=== PATIENT | female | born 1970 | race Caucasian/White ===

== ENCOUNTER 2017-01-29 18:22 | Emergency (ER) | payer SELFPAY ==
--- NOTE | 2017-01-29 19:42 | ED ---
Head Injury - HPI Summary HPI Summary: 46F present with head injury this morning. She fell on the ice. She states that since then she feels like she is in a fog. She states that her vision feels blurry but she denies any diplopia. She admits to a moderate headache. She took a dose of ibuprofen. She also admits to mild back pain. She denies any LOC. She denies being on blood thinners. She hit the left side of her head. She admits to nausea but denies any vomiting. - History Of Current Complaint Chief Complaint: EDHeadInjury Stated Complaint: FALL/HEAD INJURY Time Seen by Provider: 01/29/17 19:19 Pain Intensity: 4 - Allergies/Home Medications Allergies/Adverse Reactions: Allergies Allergy/AdvReac Type Severity Reaction Status Date / Time Codeine Allergy See Comment Verified 01/29/17 18:52 PMH/Surg Hx/FS Hx/Imm Hx Endocrine/Hematology History: Denies: Hx Anticoagulant Therapy Cardiovascular History: Denies: Hx Hypertension Infectious Disease History: No Infectious Disease History: Denies: Traveled Outside the [place] in Last 30 Days - Family History Known Family History: Negative: Cardiac Disease - Social History Alcohol Use: None Substance Use Type: Reports: None Smoking Status (MU): Never Smoked Tobacco Review of Systems Negative: Fever Positive: Photophobia, Blurred Vision. Negative: Diplopia Negative: Chest Pain Negative: Shortness Of Breath Positive: Headache All Other Systems Reviewed And Are Negative: Yes Physical Exam Triage Information Reviewed: Yes Vital Signs On Initial Exam: Initial Vitals Temp Pulse Resp BP Pulse Ox 97.7 F 76 18 134/79 100 01/29/17 18:52 01/29/17 18:52 01/29/17 18:52 01/29/17 18:52 01/29/17 18:52 Vital Signs Reviewed: Yes Appearance: Positive: Well-Appearing Skin: Positive: Warm, Dry Head/Face: Positive: Normal Head/Face Inspection, Other - no step off, raccoon eyes, mckinley sign Eyes: Positive: Normal, EOMI, ESME, Conjunctiva Clear ENT: Positive: Normal ENT inspection, Pharynx normal, TMs normal Respiratory/Lung Sounds: Positive: Clear to Auscultation, Breath Sounds Present Cardiovascular: Positive: Normal, RRR Musculoskeletal: Positive: Other - no midline tenderness Neurological: Positive: Sensory/Motor Intact, Alert, Oriented to Person Place, Time, CN Intact II-III - [place] Coma Scale Best Eye Response: 4 - Spontaneous Best Motor Response: 6 - Obeys Commands Best Verbal Response: 5 - Oriented Diagnostics - Vital Signs Vital Signs Temp Pulse Resp BP Pulse Ox 01/29/17 18:52 97.7 F 76 18 134/79 100 - Laboratory Lab Statement: Any lab studies that have been ordered have been reviewed, and results considered in the medical decision making process. - CT brain CT Interpretation: No Acute Changes - IMPRESSION: NO EVIDENCE FOR ACUTE INTRACRANIAL ABNORMALITY. CT Interpretation Completed By: Radiologist Head Injury Course/Dx Course Of Treatment: 46F presents with head injury this morning when slipped on ice. no LOC. is not on blood thinners. no vomiting but admits to nausea. admits to blurry vision and difficulty concentrating. normal neuro exam. CT normal. gave zofran and discussed symptoms are normal for head injury. told if develops vomiting or severe headache to return. told to take zofran and tyenlol for headache. told to follow up with primary. patient understands and agrees with plan - Diagnoses Differential Diagnosis/HQI/PQRI: Concussion Without LOC, Contusion, Intracranial Bleed Provider Diagnoses: Head injury Discharge - Discharge Plan Condition: Good Disposition: HOME Prescriptions: Ondansetron ODT TAB* [Zofran 4 MG Odt TAB*] 4 mg PO Q6H PRN #10 tab.odt PRN Reason: Nausea Patient Education Materials: Head Injury (ED) Referrals: Eulgoio Luis MD [Primary Care Provider] - Additional Instructions: Take Tylenol or ibuprofen for headache every 6 hours as needed Is normal to feel sleeper than usual, have difficulty concentrating, and to have a change in appetite Follow up with primary within 5 days if no improvement Return to ED if develop vomiting, severe headache, change in behavior, or any new or worsening symptoms
--- NOTE | 2017-01-29 19:56 | RAD ---
INDICATION: Head injury. COMPARISON: There are no prior studies available for comparison. TECHNIQUE: Contiguous axial sections of the brain were obtained from the skull base to the vertex without contrast. FINDINGS: The ventricles, cisterns and sulci are within normal limits. No significant focal abnormality or mass effect is seen. There is no evidence for hemorrhage. No significant focal osseous abnormality is seen. The visualized portion of the paranasal sinuses and mastoid air cells appear clear. IMPRESSION: NO EVIDENCE FOR ACUTE INTRACRANIAL ABNORMALITY.
[2017-01-29] MEDS ORDERED: Ondansetron ODT TAB* 4 MG PO ONE ×2 (19:57→20:11)
[2017-01-29] MEDS ORDERED: Acetaminophen TAB* 325 MG PO ONE (20:05)
[2017-01-29 22:40] VITALS: BP 115/78
== END 2017-01-29 21:02 | disposition home or self-care (01) ==
LOC: ED 18:22
DX: S09.90XA Unspecified injury of head, initial encounter (principal); H53.8 Other visual disturbances; W00.9XXA Unspecified fall due to ice and snow, initial encounter; Y93.9 Activity, unspecified; Y92.9 Unspecified place or not applicable; Y99.9 Unspecified external cause status; R51 Headache
CPT/HCPCS: 70450; 99282; A9270-GY

== ENCOUNTER 2017-06-10 16:46 | Emergency (ER) | payer OTHER ==
[2017-06-10 18:53] LABS: Hematocrit 40 % (35-47); Hemoglobin 13.3 g/dl (12.0-16.0); Mean Corpuscular HGB Conc 33 g/dl (31-36); Mean Corpuscular Hemoglobin 30 pg (27-31); Mean Corpuscular Volume 90 fL (80-97); Mean Platelet Volume 9 um3 (7.4-10.4); Red Blood Count 4.47 10^6/ul (4.0-5.4); Red Cell Distribution Width 15 % (10.5-15); White Blood Count 8.6 10^3/ul (3.5-10.8)
[2017-06-10] MEDS ORDERED: Ketorolac INJ* 30 MG/ML 1 ML VIAL IV PUSH ONE (18:59)
[2017-06-10] MEDS ORDERED: Ondansetron INJ* 2 MG/ML VIAL IV ONE (18:59)
[2017-06-10 19:08] LABS: ALT 9 U/L (7-52); AST 12 U/L (13-39); Albumin 3.8 g/dL (3.2-5.2); Alkaline Phosphatase 66 U/L (34-104); Anion Gap 5 mmol/L (2-11); BUN/Creatinine Ratio 11.8 (8-20); Blood Urea Nitrogen 10 mg/dL (6-24); CO2 Carbon Dioxide 25 mmol/L (22-32); Calcium 8.7 mg/dL (8.6-10.3); Chloride 107 mmol/L (101-111); EGFR African American 93.4 (>60); EGFR Non-African American 72.7 (>60); Globulin 2.8 g/dL (2-4); Glucose 76 mg/dL (70-100); Lipase 23 U/L (11.0-82.0); Potassium 3.6 mmol/L (3.5-5.0); Sodium 137 mmol/L (133-145); Total Protein 6.6 g/dL (6.4-8.9)
[2017-06-10] MEDS ORDERED: NS 0.9% 1000 ML* 2,000 ML IV ONE (19:24)
[2017-06-10] MEDS ORDERED: Morphine INJ* 4 MG/ML 1 ML SYRINGE IV ONE (19:26)
--- NOTE | 2017-06-10 19:51 | ED ---
GI/ HPI - HPI Summary HPI Summary: 46F presents with vaginal bleeding and LLQ for today. She has never had this before. She states she is soaking a pad an hour. She does not have a history of excessive vaginal bleeding. She admits to nausea from the pain. She denies any diarrhea, constipation, or vomiting. She denies any fever. She denies any flank pain, dysuria, hematuria, vaginal discharge, history of STDS. She denies any previous abdominal surgeries. She denies any history of ovarian cyst. - History of Current Complaint Chief Complaint: EDVaginalBleeding Time Seen by Provider: 06/10/17 18:35 Stated Complaint: ABD PAIN/BLEEDING Pain Intensity: 7 - Allergy/Home Medications Allergies/Adverse Reactions: Allergies Allergy/AdvReac Type Severity Reaction Status Date / Time Codeine Allergy See Comment Verified 06/10/17 17:03 PMH/Surg Hx/FS Hx/Imm Hx Endocrine/Hematology History: Denies: Hx Anticoagulant Therapy Cardiovascular History: Denies: Hx Hypertension Infectious Disease History: No Infectious Disease History: Denies: Traveled Outside the [place] in Last 30 Days - Family History Known Family History: Negative: Cardiac Disease - Social History Alcohol Use: Daily Alcohol Amount: twisted tea 2 bottles Substance Use Type: Reports: None Smoking Status (MU): Never Smoked Tobacco Review of Systems Negative: Fever Negative: Chest Pain Negative: Shortness Of Breath Positive: Abdominal Pain, Vomiting, Nausea. Negative: Diarrhea Positive: other - vaginal bleeding All Other Systems Reviewed And Are Negative: Yes Physical Exam Triage Information Reviewed: Yes Vital Signs On Initial Exam: Initial Vitals Temp Pulse Resp BP Pulse Ox 99.2 F 87 16 118/80 99 06/10/17 16:59 06/10/17 16:59 06/10/17 16:59 06/10/17 16:59 06/10/17 16:59 Vital Signs Reviewed: Yes Appearance: Positive: Pain Distress Skin: Positive: Warm, Dry Head/Face: Positive: Normal Head/Face Inspection Eyes: Positive: Normal, Conjunctiva Clear ENT: Positive: Normal ENT inspection, Pharynx normal, TMs normal Respiratory/Lung Sounds: Positive: Clear to Auscultation, Breath Sounds Present Cardiovascular: Positive: Normal, RRR Abdomen Description: Positive: Soft, Other: - moderate tenderness in LLQ, no rebound Bowel Sounds: Positive: Present - Aletha Coma Scale Coma Scale Total: 15 Diagnostics - Vital Signs Vital Signs Temp Pulse Resp BP Pulse Ox 06/10/17 19:00 78 99 06/10/17 18:30 76 106/64 96 06/10/17 18:00 73 13 112/72 97 06/10/17 17:44 81 98 06/10/17 17:43 94/48 06/10/17 16:59 99.2 F 87 16 118/80 99 - Laboratory Lab Results: Lab Results 06/10/17 06/10/17 06/10/17 Range/Units 18:45 18:45 18:45 WBC 8.6 (3.5-10.8) 10^3/ul RBC 4.47 (4.0-5.4) 10^6/ul Hgb 13.3 (12.0-16.0) g/dl Hct 40 (35-47) % MCV 90 (80-97) fL MCH 30 (27-31) pg MCHC 33 (31-36) g/dl RDW 15 (10.5-15) % Plt Count 273 (150-450) 10^3/ul MPV 9 (7.4-10.4) um3 Neut % (Auto) 66.6 (38-83) % Lymph % (Auto) 24.7 L (25-47) % Mobile % (Auto) 6.7 (1-9) % Eos % (Auto) 1.0 (0-6) % Baso % (Auto) 1.0 (0-2) % Absolute Neuts (auto) 5.7 (1.5-7.7) 10^3/ul Absolute Lymphs (auto) 2.1 (1.0-4.8) 10^3/ul Absolute Monos (auto) 0.6 (0-0.8) 10^3/ul Absolute Eos (auto) 0.1 (0-0.6) 10^3/ul Absolute Basos (auto) 0.1 (0-0.2) 10^3/ul Absolute Nucleated RBC 0.01 10^3/ul Nucleated RBC % 0.1 INR (Anticoag Therapy) 0.93 (0.89-1.11) APTT 27.5 (26.0-36.3) seconds Sodium 137 (133-145) mmol/L Potassium 3.6 (3.5-5.0) mmol/L Chloride 107 (101-111) mmol/L Carbon Dioxide 25 (22-32) mmol/L Anion Gap 5 (2-11) mmol/L BUN 10 (6-24) mg/dL Creatinine 0.85 (0.51-0.95) mg/dL Est GFR ( Amer) 93.4 (>60) Est GFR (Non-Af Amer) 72.7 (>60) BUN/Creatinine Ratio 11.8 (8-20) Glucose 76 (70-100) mg/dL Calcium 8.7 (8.6-10.3) mg/dL Total Bilirubin 0.60 (0.2-1.0) mg/dL AST 12 L (13-39) U/L ALT 9 (7-52) U/L Alkaline Phosphatase 66 (34-104) U/L C-React Prot High Sens 1.76 mg/L Total Protein 6.6 (6.4-8.9) g/dL Albumin 3.8 (3.2-5.2) g/dL Globulin 2.8 (2-4) g/dL Albumin/Globulin Ratio 1.4 (1-3) Lipase 23 (11.0-82.0) U/L Beta HCG, Quant < 0.60 mIU/mL Result Diagrams: 06/10/17 18:45 06/10/17 18:45 Lab Statement: Any lab studies that have been ordered have been reviewed, and results considered in the medical decision making process. - CT abd CT Interpretation: No Acute Changes - no neprolithasis, no bowel obstruction, colitits, free fluid CT Interpretation Completed By: Radiologist MOHAMUD Course/Dx - Course Course Of Treatment: 46F presents with vaginal bleeding and LLQ for today. She has never had this before. She states she is soaking a pad an hour. She does not have a history of excessive vaginal bleeding. She admits to nausea from the pain. She denies any diarrhea, constipation, or vomiting. She denies any fever. She denies any flank pain, dysuria, hematuria, vaginal discharge, history of STDS. She denies any previous abdominal surgeries. on exam tender in LLQ. no rebound. u/s no show left ovary. got CT because still in lot of pain no stone or large cyst on CT. could be dysmenorrhea? patient decline vaginal exam. patient understands and agrees with plan. - Diagnoses Differential Diagnoses - Female: Diverticulitis, , Urinary Tract Infection Provider Diagnoses: Abdominal pain, Vaginal bleeding Discharge - Discharge Plan Condition: Good Disposition: HOME Prescriptions: Ondansetron ODT TAB* [Zofran 4 MG Odt TAB*] 4 mg PO Q6H PRN #12 tab.odt PRN Reason: Nausea Patient Education Materials: Dysmenorrhea (ED) Referrals: Eulogio Luis MD [Primary Care Provider] - Additional Instructions: Drink small amounts of fluid as tolerated When able to eat follow BRAT diet: Bananas, rice, applesauce, toast Take ibuprofen or Tylenol for pain as needed every 6 hours Follow up with primary within 5 days Return to ED if develop any new or worsening symptoms
--- NOTE | 2017-06-10 20:56 | RAD ---
Indication: LEFT lower quadrant pain. Vaginal bleeding. Comparison: No relevant prior exams available on the [facility] for comparison. Technique: Transvaginal pelvic ultrasound. Report: Unremarkable 8.1 x 3.5 x 4.9 cm anteverted retroflexed uterus. 8.4 mm endometrium. Nabothian cysts at the cervix. Trace free fluid at the cul-de-sac. 3.1 x 1.2 x 1.9 cm RIGHT ovary with documented vascular flow is remarkable for small follicles only. The LEFT ovary could not be visualized. No extraovarian adnexal region lesions evident. IMPRESSION: 1. Unremarkable uterus and RIGHT ovary. 2. The LEFT ovary could not be visualized with assessment limited due to bowel gas and poor tolerance for ultrasound exam of the LEFT lower quadrant attributable to previous back injury according to the technologist. 3. No visualized adnexal region lesions evident. 4. Negative for significant free pelvic fluid.
[2017-06-10] MEDS ORDERED: oxyCODONE ORAL.SOLN* 5 MG/5 ML UDC PO ONE (21:37)
[2017-06-10] MEDS ORDERED: Morphine INJ* 2 MG/ML 1 ML SYRINGE IV ONE (22:39)
[2017-06-10 22:49] LABS: Urine Bacteria Absent (Absent); Urine Bilirubin Negative (Negative); Urine Glucose Negative (Negative); Urine Nitrite Negative (Negative)
[2017-06-10] MEDS ORDERED: traMADol TAB* 50 MG PO ONE (23:29)
[2017-06-10] MEDS ORDERED: Ondansetron ODT TAB* 4 MG PO ONE (23:30)
[2017-06-10 23:45] VITALS: BP 106/56
--- NOTE | 2017-06-11 07:31 | RAD ---
INDICATION: Left flank and left lower quadrant abdominal pain. COMPARISON: Comparison is made to prior pelvic ultrasound from June 10, 2017. TECHNIQUE: A CT scan of the abdomen and pelvis was performed without intravenous or oral contrast. Contiguous axial sections were obtained from the lung bases through the symphysis pubis. Images were reconstructed in the coronal and sagittal planes. FINDINGS: There is mild dependent bilateral lower lobe subsegmental atelectasis. No pleural effusion is present. The liver and spleen are normal in size. The liver is decreased in attenuation consistent with fatty infiltration. No significant focal normality is seen. No calcific gallstones are noted. The pancreas appears to be within normal limits. The adrenal glands and kidneys are normal in size. No renal calculi or hydronephrosis is seen. No ureteral or bladder calculi are seen. The aorta is normal in caliber without significant calcific plaque. No significant enlarged retroperitoneal lymph nodes are seen. The patient is status post laparoscopic banding procedure. The stomach, small and large bowel appear nondistended. The appendix is within normal limits. There are scattered diverticuli in the descending and sigmoid colon. There is no evidence for diverticulitis or colitis. The uterus is anteverted and normal in size. There is a tampon present in the vagina. No free intraperitoneal air or fluid is seen. The patient is status post placement of an L1 vertebral body prostheses and posterior spinal fusion from the T11-L3 levels with pedicle screws. IMPRESSION: 1. NO EVIDENCE FOR ACUTE FINDING OR CAUSE FOR THE PATIENT'S ABDOMINAL PAIN IS SEEN. 2. HEPATIC STEATOSIS. 3. STATUS POST GASTRIC BANDING PROCEDURE AND POSTERIOR SPINAL FUSION OF THE LOWER DORSAL AND UPPER LUMBAR SPINE DESCRIBED.
== END 2017-06-11 00:10 | disposition home or self-care (01) ==
LOC: ED 16:46
DX: R10.32 Left lower quadrant pain (principal); N28.89 Other specified disorders of kidney and ureter; N93.9 Abnormal uterine and vaginal bleeding, unspecified; R11.2 Nausea with vomiting, unspecified
CPT/HCPCS: 36415; 74176; 76830; 80053; 81003; 81015; 83690; 84702; 85025; 85610; 85730; 86141; 87086; 96374; 96375; 99284; A9270-GY; J1885; J2270; J2405

== ENCOUNTER 2018-10-25 17:30 | Emergency (ER) | payer OTHER ==
[2018-10-25 17:39] VITALS: BP 133/81
--- NOTE | 2018-10-25 17:58 | UC ---
Throat Pain/Nasal Duran HPI - HPI Summary HPI Summary: 47-year-old woman comes in today with chief complaint of runny nose sore throat cough chest congestion for 5-6 days. Initially she was using [id number] medications and everything was getting quite a bit better in the last 2 days things about a lot worse. Now she is having some blood in her rhinorrhea. She' s feeling worse. No wheezing. She's had walking pneumonia before and she says this does not feel like pneumonia. - History of Current Complaint Chief Complaint: UCGeneralIllness Stated Complaint: RESP COMPLAINT Time Seen by Provider: 10/25/18 17:51 Hx Last Menstrual Period: 10/17/18 Pain Intensity: 6 - Allergies/Home Medications Allergies/Adverse Reactions: Allergies Allergy/AdvReac Type Severity Reaction Status Date / Time codeine Allergy Severe loss of Verified 10/25/18 17:39 motor skills Home Medications: Home Medications Pregabalin [Lyrica] 200 mg PO BID 10/25/18 [History Confirmed 10/25/18] PMH/Surg Hx/FS Hx/Imm Hx Previously Healthy: Yes Other History Of: Negative For: Anticoagulant Therapy - Surgical History Surgical History: None Surgery Procedure, Year, and Place: breast reduction. abdominoplasty. L1 back fusion - Family History Known Family History: Negative: Cardiac Disease - Social History Alcohol Use: Occasionally Alcohol Amount: twisted tea 2 bottles Substance Use Type: None Smoking Status (MU): Never Smoked Tobacco Review of Systems All Other Systems Reviewed And Are Negative: Yes Constitutional: Positive: Fever, Chills Skin: Positive: Negative Eyes: Positive: Negative ENT: Positive: Sore Throat, Nasal Discharge, Sinus Congestion, Sinus Pain/ Tenderness Respiratory: Positive: Cough Cardiovascular: Positive: Negative Gastrointestinal: Positive: Negative Motor: Positive: Negative Neurovascular: Positive: Negative Musculoskeletal: Positive: Negative Neurological: Positive: Negative Psychological: Positive: Negative Is Patient Immunocompromised?: No Physical Exam Triage Information Reviewed: Yes Appearance: No Pain Distress, Well-Nourished, Ill-Appearing - MILD Vital Signs: Initial Vital Signs Temp 98.2 F 10/25/18 17:34 Pulse 100 10/25/18 17:34 Resp 20 10/25/18 17:34 BP 133/81 10/25/18 17:34 Pulse Ox 99 10/25/18 17:34 Vital Signs Reviewed: Yes Eye Exam: Normal Eyes: Positive: Conjunctiva Clear Neck exam: Normal Neck: Positive: Supple Respiratory: Positive: Lungs clear, Normal breath sounds, No respiratory distress Cardiovascular: Positive: Tachycardia Musculoskeletal Exam: Normal Musculoskeletal: Positive: Strength Intact, ROM Intact Neurological Exam: Normal Neurological: Positive: Alert, Muscle Tone Normal Psychological Exam: Normal Psychological: Positive: Age Appropriate Behavior Skin Exam: Normal Throat Pain/Nasal Course/Dx - Course Course Of Treatment: DISCUSSED VIRAL VERSES BACTERIAL INFECTION AND THE ROLE OF ANTIBIOTICS. THE PATIENT WISHES TO BE ON ANTIBIOTIC AT THIS TIME. - Differential Dx/Diagnosis Provider Diagnosis: Sinusitis Discharge - Sign-Out/Discharge Documenting (check all that apply): Patient Departure All imaging exams completed and their final reports reviewed: No Studies - Discharge Plan Condition: Stable Disposition: HOME Prescriptions: Amoxicillin/Clavulanate TAB* [Augmentin TAB 875*] 875 mg PO BID #20 tab Benzonatate CAP* [Tessalon 100 MG CAP*] 100 mg PO TID PRN #20 cap PRN Reason: Cough Patient Education Materials: Sinusitis (ED) Forms: *Work Release Referrals: Eulogio Luis MD [Primary Care Provider] - Additional Instructions: FOLLOW UP WITH YOUR DOCTOR IF NOT COMPLETELY IMPROVED. GET RECHECKED FOR ANY WORSENING OF YOUR CONDITION OR QUESTIONS OR CONCERNS. - Billing Disposition and Condition Condition: STABLE Disposition: Home
== END 2018-10-25 18:09 | disposition home or self-care (01) ==
LOC: UCEAST 17:30
DX: J32.9 Chronic sinusitis, unspecified (principal); Z88.5 Allergy status to narcotic agent
CPT/HCPCS: 99212; G0463

== ENCOUNTER 2019-01-23 14:44 | Emergency (ER) | payer OTHER ==
[2019-01-23 15:01] VITALS: BP 125/75
--- NOTE | 2019-01-23 15:18 | UC ---
Cardiac HPI - HPI Summary HPI Summary: 48-year-old female comes in with chief complaint of left thoracic chest pain. She woke up yesterday morning with this. It hurts more when she takes a deep breath or coughs. She's had a broken back and has had surgery from T12 down into her lumbar spine. She is chronic back pain in this area but she says this is different. No fevers or chills not bringing up any sputum. She does feel short of breath. No calf pain no history of DVT or pulmonary embolus. Her mother did have a DVT. She is not a smoker no recent travel. - History of Current Complaint Chief Complaint: UCBackPain Stated Complaint: BACK INJURY Time Seen by Provider: 01/23/19 15:03 Hx Last Menstrual Period: January 10, 2019 Pain Intensity: 7 - Allergy/Home Medications Allergies/Adverse Reactions: Allergies Allergy/AdvReac Type Severity Reaction Status Date / Time codeine Allergy Severe loss of Verified 10/25/18 17:39 motor skills Home Medications: Home Medications Tramadol HCl 01/23/19 [History] PMH/Surg Hx/FS Hx/Imm Hx Previously Healthy: Yes Other History Of: Negative For: Anticoagulant Therapy - Surgical History Surgical History: None Surgery Procedure, Year, and Place: breast reduction. abdominoplasty. L1 back fusion - Family History Known Family History: Negative: Cardiac Disease - Social History Alcohol Use: Occasionally Alcohol Amount: twisted tea 2 bottles Substance Use Type: None Smoking Status (MU): Never Smoked Tobacco Review of Systems All Other Systems Reviewed And Are Negative: Yes Constitutional: Positive: Negative Skin: Positive: Negative Eyes: Positive: Negative ENT: Positive: Negative Respiratory: Positive: Shortness Of Breath Cardiovascular: Positive: Chest Pain Gastrointestinal: Positive: Negative Motor: Positive: Negative Neurovascular: Positive: Negative Musculoskeletal: Positive: Negative Neurological: Positive: Negative Psychological: Positive: Negative Is Patient Immunocompromised?: No Physical Exam Triage Information Reviewed: Yes Appearance: Well-Appearing, Well-Nourished, Pain Distress - mild pain distress with movement Vital Signs: Initial Vital Signs Temp 97.6 F 01/23/19 14:54 Pulse 79 01/23/19 14:54 Resp 16 01/23/19 14:54 BP 125/75 01/23/19 14:54 Pulse Ox 97 01/23/19 14:54 Vital Signs Reviewed: Yes Eye Exam: Normal Eyes: Positive: Conjunctiva Clear Neck exam: Normal Neck: Positive: Supple, Nontender Respiratory: Positive: Lungs clear, Normal breath sounds, No respiratory distress, Other: - area of pain is thoracic left posterior back which is non tender to palpation Cardiovascular: Positive: RRR Abdomen Description: Positive: Nontender, Soft. Negative: CVA Tenderness (R), CVA Tenderness (L) Bowel Sounds: Positive: Present Musculoskeletal: Positive: ROM Intact, Other: - chronic left foot drop thoracic and lumbar spine is non tender in the midline Neurological Exam: Normal Neurological: Positive: Alert, Muscle Tone Normal Psychological Exam: Normal Psychological: Positive: Age Appropriate Behavior Skin Exam: Normal Skin: Positive: Other - no rash - Assessment/Plan Course Of Treatment: Patient Name: ANA FELIX Medical Record#: [id number]. Ordering Physician: Chilango Cross MD Acct.#: [id number]. : 1970 Age: 48 Sex: F Location: [facility]. Exam Date: 01/23/191511 ADM Status: REG ER. Order Information: CHEST PA LAT 2 VWS. Accession Number: [id number]. CPT: 59791. INDICATION: Left posterior splinting chest pain. COMPARISON: There are no relevant prior studies available for comparison. TECHNIQUE: Dual-energy PA and lateral views of the chest were obtained. FINDINGS: The heart is within normal limits in size. Mediastinal and hilar contours. appear within normal limits. The lungs are underinflated and clear. No pleural effusion or pneumothorax is seen. The patient is status post posterior spinal fusion of the lower dorsal and visualized. upper lumbar spine. IMPRESSION: NO EVIDENCE FOR ACTIVE CARDIOPULMONARY DISEASE. . <Electronically signed by Kit De La Rosa MD in OV> 01/23/19 [id number]. I discussed the x-ray reports with the patient. The pain is splinting left posterior chest. Vital signs are stable oxygenation is normal at 97%. She is not tachycardic. However I cannot rule out pulmonary embolus. There is a family history of deep venous thrombosis. I recommended further evaluation in the emergency department. Patient states she prefers to go to the [facility] emergency department. She also prefers to lie POV. I spoke to the nurse practitioner Jaquelin Gusman at the [facility] emergency department. - Clinical Impression Provider Diagnosis: Chest pain Discharge - Sign-Out/Discharge Documenting (check all that apply): Patient Departure All imaging exams completed and their final reports reviewed: Yes - Discharge Plan Condition: Stable Disposition: HOME-RECOMMEND TO ED Patient Education Materials: Chest Pain (ED) Referrals: Eulogio Luis MD [Primary Care Provider] - Additional Instructions: GO DIRECTLY TO THE EMERGENCY DEPARTMENT FOR FURTHER EVALUATION OF YOUR CHEST PAIN. - Billing Disposition and Condition Condition: STABLE Disposition: Home-Recommend to ED
== END 2019-01-23 16:05 | disposition home health service (06) ==
LOC: UCEAST 14:44
DX: R07.9 Chest pain, unspecified (principal); Z88.5 Allergy status to narcotic agent
CPT/HCPCS: 71046; 99212; G0463